=== PATIENT | female | born 1940 | race Caucasian/White ===

== ENCOUNTER → 2025-11-19 | Outpatient (CLI) | payer MEDICARE ==
--- NOTE | 2025-11-20 00:11 | HMCIMG ---
EXAM Ultrasound of the thyroid gland CLINICAL INDICATION Nontoxic multinodular thyroid. COMPARISON None. TECHNIQUE High-resolution grayscale and color Doppler ultrasound images of the thyroid gland were obtained. RIGHT THYROID LOBE The right thyroid lobe measures approximately 3.9 x 2.1 x 1.8 cm. The thyroid parenchyma is homogeneous. Two complex nodules are identified measures approximately 0.9 x 0.5 x 1.0 cm and 0.9 x 0.4 x 0.8 cm. Two hypoechoic solid nodules are present, measuring approximately 0.7 x 0.5 x 0.5 cm and 0.6 x 0.5 x 0.5 cm, respectively. A simple cyst is identified within the right lobe measuring approximately 0.5 x 0.4 x 0.4 cm. No irregular margins, suspicious echogenic foci, or abnormal internal vascularity are identified. LEFT THYROID LOBE The left thyroid lobe measures approximately 4.5 x 1.3 x 1.6 cm. The thyroid parenchyma is homogeneous. Five hypoechoic solid nodules are identified, measuring approximately 0.4 x 0.2 x 0.3 cm, 0.6 x 0.4 x 0.7 cm, 0.8 x 0.4 x 0.6 cm, 0.6 x 0.4 x 0.5 cm and 0.6 x 0.4 x 0.7 cm. One complex area is identified left thyroid lobe measuring approximately 0.9 x 0.6 x 0.6 cm. No suspicious calcifications, irregular margins, or abnormal internal vascularity are identified. ISTHMUS The thyroid isthmus measures approximately 0.3 cm in thickness and is within normal limits. No discrete isthmic nodule is identified. CERVICAL LYMPH NODES No sonographically suspicious cervical lymph nodes are identified in the visualized portions of the neck. IMPRESSION * Multinodular thyroid gland with multiple bilateral nodules and a cyst in right thyroid lobe. * All identified nodules measure less than 1.0 cm and demonstrate no suspicious sonographic features. * Homogeneous thyroid parenchyma without sonographic evidence of thyroiditis. RECOMMENDATIONS * Based on ACR TI-RADS criteria, none of the identified nodules meet size or feature thresholds for fine-needle aspiration. * Follow-up thyroid ultrasound in 12 to 24 months may be considered for surveillance or sooner if there is clinical change or risk factors for thyroid malignancy. /[place]
== END | disposition home or self-care (01) ==
LOC: RAH 12:20
PROVIDERS: ATTEND Internal Medicine
DX: E04.2 Nontoxic multinodular goiter (principal)
CPT/HCPCS: 76536